=== PATIENT | female | born 1955 | race Caucasian/White ===

== ENCOUNTER 2019-05-13 23:05 | Emergency (ER) | payer OTHER, SELFPAY ==
[2019-05-13 23:14] VITALS: BP 185/91; PULSE 89; RESP 20; O2SAT 98
--- NOTE | 2019-05-16 15:15 | ED.EYEPROB ---
HPI - Eye Problem General Chief complaint: Eye Problems Stated complaint: thinks has a retinal detachment Source: patient Mode of arrival: Ambulatory History of Present Illness HPI Narrative: The patient was never seen by myself interviewed or examined. She left without being treated Patient History Social History Smoking Status: Never smoker Smoking Status: Never smoker Exam Initial Vital Signs Initial Vital Signs: Vital Signs Pulse Rate 89 05/13/19 23:14 Respiratory Rate 20 05/13/19 23:14 Blood Pressure 185/91 H 05/13/19 23:14 Pulse Oximetry 98 05/13/19 23:14 Discharge Plan Departure Patient Disposition: Left Without Being Seen Clinical Impression: Patient left after triage Discharge Date/Time: 05/14/19 01:23
== END 2019-05-14 01:23 | disposition left against medical advice (07) ==
PROVIDERS: Emergency Provider Emergency Medicine
CPT/HCPCS: 99281